=== PATIENT | male | born 1930 | race Caucasian/White ===

== ENCOUNTER 2017-11-16 11:56 | Inpatient (IN) ==
[2017-11-23] MEDS ORDERED: hydrALAZINE HCl Inj 20 MG/ML Vial IV.PUSH PRN (00:01)
[2017-11-23] MEDS ORDERED: Acetaminophen 325 MG Tablet PO PRN (00:01)
[2017-11-23] MEDS ORDERED: Chlorhexidine Gluconate 2% 1 Pack (2 Cloths) TOPICAL PRN (04:00)
[2017-11-23] MEDS: Chlorhexidine Gluconate 2% 1 Pack (2 Cloths) TOPICAL SCH (05:45)
[2017-11-23 07:23] LABS: Hematocrit 36.1 % (39.0-51.0); Hemoglobin 12.2 gm/dL (13.0-17.0); Mean Corpuscular HGB Conc 33.9 % (32.0-36.0); Mean Corpuscular Hemoglobin 30.7 pg (27.0-34.0); Mean Corpuscular Volume 90.8 fL (80.0-100.0); Mean Platelet Volume 7.4 fL (7.0-11.0); Platelet Count 243 th/mm3 (150-450); Red Blood Count 3.97 mil/mm3 (4.50-5.90); Red Cell Distribution Width 13.3 % (11.6-17.2); White Blood Count 10.4 th/mm3 (4.0-11.0)
[2017-11-23 07:46] LABS: Calcium 8.5 mg/dL (8.5-10.1); Carbon Dioxide 28.3 meq/L (21.0-32.0); Potassium 4.3 meq/L (3.5-5.1)
[2017-11-23] MEDS: Ciprofloxacin 500 MG Tablet PO SCH ×2 (10:02→23:06)
[2017-11-23] MEDS: Metoprolol Tartrate 25 MG Tablet PO SCH (10:03)
[2017-11-23] MEDS: Famotidine 20 MG Tablet PO SCH ×2 (10:04→23:06)
[2017-11-23] MEDS: Lisinopril 5 MG Tablet PO SCH (10:05)
--- NOTE | 2017-11-23 12:33 | P.PNIM ---
Subjective Interval history: Patient complains of bilateral lower extremity pain which is present with ambulation. Family has concerns for clot. I feel this may be related to his previous diarrhea with electrolyte disturbances. His diarrhea has improved on Questran. Physical Exam Vital signs: Vital Signs 11/22/17 19:40 11/23/17 00:00 11/23/17 04:00 Temperature 97.9 F 97.6 F Pulse Rate 68 66 80 Respiratory Rate 20 20 Blood Pressure 151/71 H 158/74 H Pulse Oximetry 95 96 11/23/17 08:00 11/23/17 12:26 Temperature 97.3 F L Pulse Rate 58 L 51 L Respiratory Rate 18 Blood Pressure 145/79 H Pulse Oximetry 98 Intake & Output 11/22/17 11/23/17 11/23/17 18:59 06:59 18:59 Weight 69.4 kg Other: Date of Last Bowel Movement 11/23/17 - Routine HEENT Exam Comments: GENERAL: NAD, A&Ox3 HEAD: Normocephalic. NECK: Supple, trachea midline. No lymphadenopathy. EYES: No scleral icterus. No injection or drainage. CARDIOVASCULAR: Regular rate and rhythm without murmurs, gallops, or rubs. RESPIRATORY: Breath sounds equal bilaterally. No accessory muscle use. GASTROINTESTINAL: Abdomen soft, non-tender, nondistended. MUSCULOSKELETAL: No cyanosis, or edema. SKIN: Warm and dry. NEURO: No focal neurological deficitis. Results - Labs CBC & Chem 7: 11/23/17 06:30 11/23/17 06:30 Labs: Laboratory Results - last 24 hr 11/20/17 11/20/17 11/21/17 04:59 04:59 05:21 WBC 10.3 RBC 3.88 L Hgb 12.0 L Hct 34.8 L MCV 89.8 MCH 31.1 MCHC 34.6 RDW 13.5 Plt Count 178 MPV 7.7 Sodium 139 137 Potassium 3.9 4.2 Chloride 104 103 Carbon Dioxide 25.9 27.0 Anion Gap 9 7 BUN 18 18 Creatinine 1.03 0.90 Estimated GFR 68 L 80 L Random Glucose 93 100 Calcium 7.9 L 8.4 L Stl C.difficile Tox PCR St C. diff Tox Epid 027 11/21/17 11/22/17 11/22/17 05:21 04:44 04:44 WBC 11.8 H 11.4 H RBC 4.03 L 3.94 L Hgb 12.1 L 12.1 L Hct 36.4 L 35.5 L MCV 90.2 90.0 MCH 30.0 30.8 MCHC 33.3 34.2 RDW 13.6 13.2 Plt Count 220 234 MPV 7.6 7.5 Sodium 138 Potassium 4.2 Chloride 102 Carbon Dioxide 27.1 Anion Gap 9 BUN 19 H Creatinine 1.11 Estimated GFR 63 L Random Glucose 92 Calcium 8.2 L Stl C.difficile Tox PCR St C. diff Tox Epid 027 11/22/17 11/23/17 11/23/17 17:10 06:30 06:30 WBC 10.4 RBC 3.97 L Hgb 12.2 L Hct 36.1 L MCV 90.8 MCH 30.7 MCHC 33.9 RDW 13.3 Plt Count 243 MPV 7.4 Sodium 138 Potassium 4.3 Chloride 102 Carbon Dioxide 28.3 Anion Gap 8 BUN 13 Creatinine 1.12 Estimated GFR 62 L Random Glucose 94 Calcium 8.5 Stl C.difficile Tox PCR NEGATIVE St C. diff Tox Epid 027 PRESUMPTIVE NEGATIVE Assessment and Plan - Plan 87-year-old male admitted secondary to severe sepsis with UTI and metabolic encephalopathy. Diarrhea C. difficile screen is negative Improving with Questran Questran continue Bilateral lower extremity pain with ambulation Check bilateral lower extremity with ultrasound Potassium supplementation provided Magnesium supplementation provided Urinary tract infection Sensitive to Cipro, continue ciprofloxacin Hypertension Continue baseline treatment Follow blood pressures Adjust treatments as needed Coronary artery disease Status post CABG Cardiomyopathy/CHF New onset atrial fibrillation Treatment per cardiology recommendations Cardiology following Follow on telemetry Continue metoprolol Continue lisinopril Acute kidney injury HTN Benign prostatic hypertrophy Obstructive urinary retention Camacho catheter is in place Continue Flomax Void trial planned in 1-2 days Monitor renal function Avoid nephrotoxins DVT prophylaxis Lovenox SCDs Metabolic encephalopathy resolved Avoid sedatives Septic shock Lactic acidosis Resolved Discharge Planning Testing of diarrhea, void trial, physical therapy, needed prior to discharge daughter Erna Browning; [phone])
[2017-11-23] MEDS ORDERED: Magnesium Oxide 400 MG Tablet PO ONE (14:00)
--- NOTE | 2017-11-23 15:23 | P.PNCA ---
Subjective Interval history: No events overnight Diarrhea has decreased Physical Exam Vital signs: Vital Signs 11/22/17 19:40 11/23/17 00:00 11/23/17 04:00 Temperature 97.9 F 97.6 F Pulse Rate 68 66 80 Respiratory Rate 20 20 Blood Pressure 151/71 H 158/74 H Pulse Oximetry 95 96 11/23/17 08:00 11/23/17 12:00 11/23/17 12:26 Temperature 97.3 F L 97.4 F L Pulse Rate 58 L 68 51 L Respiratory Rate 18 18 Blood Pressure 145/79 H 121/64 Pulse Oximetry 98 96 Intake & Output 11/22/17 11/23/17 11/23/17 18:59 06:59 18:59 Weight 69.4 kg Other: Date of Last Bowel Movement 11/23/17 Narrative: GENERAL: NAD, AAOx3 SKIN: Warm and dry. HEAD: Atraumatic. Normocephalic. EYES: Pupils equal and round. No scleral icterus. No injection or drainage. ENT: No nasal bleeding or discharge. Mucous membranes pink and moist. NECK: Trachea midline. No JVD. CARDIOVASCULAR: Irregularly irregular RESPIRATORY: No accessory muscle use. Clear to auscultation. Breath sounds equal bilaterally. GASTROINTESTINAL: Abdomen soft, non-tender, nondistended. Hepatic and splenic margins not palpable. MUSCULOSKELETAL: Extremities without clubbing, cyanosis, or edema. No obvious deformities. NEUROLOGICAL: Awake and alert. No obvious cranial nerve deficits. Motor grossly within normal limits. Five out of 5 muscle strength in the arms and legs. Normal speech. PSYCHIATRIC: Appropriate mood and affect; insight and judgment normal. Assessment and Plan - Assessment (1) New onset a-fib Code(s): I48.91 - Unspecified atrial fibrillation Status: Acute (2) Sepsis Code(s): A41.9 - Sepsis, unspecified organism Status: Acute (3) UTI (urinary tract infection) Code(s): N39.0 - Urinary tract infection, site not specified Status: Acute - Plan 1) AFib New onset, most likely due to age and increased sympathetics with sepsis/ overall illness Rates controlled CHADSVASc = 3 Discussed consideration of anti-coagulation with him, he really didn't have an opinion either way, asked that I call his Daughter Spoke to his daughter Nam over the phone, discussed risk/benefits of anticoagulation vs ASA She's concerned about everything happening at once and his overall bruising on ASA alone For now she thinks we should continue on ASA, understands the risk of CVA , but she will consider NOAC after he gets out of the hospital and he's jamie at home Can revisit anti-coagulation outpt with Dr. 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 Gill
--- NOTE | 2017-11-23 16:11 | US ---
EXAM DATE: 11/23/2017 3:28 PM EDT AGE/SEX: 87 years / Male INDICATIONS: Bilateral leg pain. CLINICAL DATA: This is the patient's initial encounter. Patient reports that signs and symptoms have been present for 1 day and indicates a pain score of 5/10. MEDICAL/SURGICAL HISTORY: Hypercholesterolemia. Hypertension. Gallbladder disease. CAD. Inguin al hernia. CABG. Inguinal hernia repair. COMPARISON: No prior exams available for comparison. TECHNIQUE: Venous ultrasound of both lower extremities was performed from the inguinal ligament to t he proximal calf. Real-time, color Doppler and spectral tracing, compression and augmentation techni ques were used. FINDINGS: Right Leg: Normal compression of the deep venous system from the inguinal region to the proximal lucia f. No echogenic clot is seen. Normal response of the venous system to augmentation and respiration. Left Leg: Normal compression of the deep venous system from the inguinal region to the proximal calf . No echogenic clot is seen. Normal response of the venous system to augmentation and respiration. Other: None. CONCLUSION: 1. No evidence of deep venous thrombosis within the lower extremities. Electronically signed by: Marquez García MD 11/23/2017 4:10 PM EDT
[2017-11-23] MEDS: Enoxaparin Inj 30 MG/0.3 ML Syringe SQ SCH (17:26)
[2017-11-24 06:53] LABS: Hematocrit 36.4 % (39.0-51.0); Hemoglobin 12.6 gm/dL (13.0-17.0); Mean Corpuscular HGB Conc 34.5 % (32.0-36.0); Mean Corpuscular Volume 89.8 fL (80.0-100.0); Mean Platelet Volume 7.4 fL (7.0-11.0); Platelet Count 246 th/mm3 (150-450); Red Blood Count 4.05 mil/mm3 (4.50-5.90); Red Cell Distribution Width 13.5 % (11.6-17.2); White Blood Count 10.6 th/mm3 (4.0-11.0)
[2017-11-24 07:38] LABS: Calcium 8.8 mg/dL (8.5-10.1); Carbon Dioxide 23.8 meq/L (21.0-32.0); Potassium 4.1 meq/L (3.5-5.1)
[2017-11-24] MEDS: Famotidine 20 MG Tablet PO SCH ×2 (08:52→21:43)
[2017-11-24] MEDS: Lisinopril 5 MG Tablet PO SCH (08:52)
[2017-11-24] MEDS: Ciprofloxacin 500 MG Tablet PO SCH ×2 (08:52→21:43)
[2017-11-24] MEDS: Metoprolol Tartrate 25 MG Tablet PO SCH (08:52)
--- NOTE | 2017-11-24 11:44 | P.PNIM ---
Subjective Interval history: Void trial planned for today. Pending removal of catheter in the monitor volumes. No new complaints from patient. Ultrasound of lower extremities is negative for DVT. Physical Exam Vital signs: Vital Signs 11/23/17 12:00 11/23/17 12:26 11/23/17 16:00 Temperature 97.4 F L 97.8 F Pulse Rate 68 51 L 62 Respiratory Rate 18 18 Blood Pressure 121/64 119/61 Pulse Oximetry 96 98 11/23/17 20:00 11/24/17 00:00 11/24/17 04:00 Temperature 98.0 F 98.3 F 97.1 F L Pulse Rate 66 73 72 Respiratory Rate 18 16 18 Blood Pressure 119/82 148/84 H 148/73 H Pulse Oximetry 97 98 98 11/24/17 08:00 11/24/17 09:50 Temperature 98.4 F Pulse Rate 68 77 Respiratory Rate 18 Blood Pressure 163/96 H Pulse Oximetry 97 Intake & Output 11/23/17 11/24/17 11/24/17 18:59 06:59 18:59 Intake Total 0 / 0 470 / 470 Output Total 1800 / 1800 Balance 0 / 0 -1330 / -1330 Weight 68.9 kg Intake: Oral 470 / 470 Other 0 / 0 Output: Urine 1800 / 1800 Other: Date of Last Bowel Movement 11/23/17 # Bowel Movements 3 - Routine HEENT Exam Comments: GENERAL: NAD, A&Ox3 HEAD: Normocephalic. NECK: Supple, trachea midline. No lymphadenopathy. EYES: No scleral icterus. No injection or drainage. CARDIOVASCULAR: Regular rate and rhythm without murmurs, gallops, or rubs. RESPIRATORY: Breath sounds equal bilaterally. No accessory muscle use. GASTROINTESTINAL: Abdomen soft, non-tender, nondistended. MUSCULOSKELETAL: No cyanosis, or edema. SKIN: Warm and dry. NEURO: No focal neurological deficitis. - Urinary Catheter Management Indwelling Urethral Catheter Cath placed during this visit: yes Urethral indwelling: Yes Reason for continuing: Not indwelling catheter (Void Trial today) Insertion date: 11/23/17 Insertion time: 00:00 Results - Labs CBC & Chem 7: 11/24/17 04:50 11/24/17 04:50 Laboratory Results - last 24 hr 11/24/17 11/24/17 04:50 04:50 WBC 10.6 RBC 4.05 L Hgb 12.6 L Hct 36.4 L MCV 89.8 MCH 31.0 MCHC 34.5 RDW 13.5 Plt Count 246 MPV 7.4 Sodium 135 L Potassium 4.1 Chloride 101 Carbon Dioxide 23.8 Anion Gap 10 BUN 15 Creatinine 1.08 Estimated GFR 65 L Random Glucose 89 Calcium 8.8 - Imaging Impressions Venous Doppler Study 11/23/17 00:00 CONCLUSION: 1. No evidence of deep venous thrombosis within the lower extremities. Assessment and Plan - Plan 87-year-old male admitted secondary to severe sepsis with UTI and metabolic encephalopathy. Void trial today. Monitor urine output. Monitor bladder volumes. If patient fails voiding trial will discharge with catheter. The patient passes void trial will leave catheter out. Diarrhea C. difficile screen is negative Improving with Questran Questran continue Bilateral lower extremity pain with ambulation Check bilateral lower extremity with ultrasound Potassium supplementation provided Magnesium supplementation provided Urinary tract infection Sensitive to Cipro, continue ciprofloxacin Hypertension Continue baseline treatment Follow blood pressures Adjust treatments as needed Coronary artery disease Status post CABG Cardiomyopathy/CHF New onset atrial fibrillation Treatment per cardiology recommendations Cardiology following Follow on telemetry Continue metoprolol Continue lisinopril Acute kidney injury HTN Benign prostatic hypertrophy Obstructive urinary retention Camacho catheter is in place Continue Flomax Void trial planned in 1-2 days Monitor renal function Avoid nephrotoxins DVT prophylaxis Lovenox SCDs Metabolic encephalopathy resolved Avoid sedatives Septic shock Lactic acidosis Resolved Discharge Planning Testing of diarrhea, void trial, physical therapy, needed prior to discharge daughter Erna Browning; [phone])
--- NOTE | 2017-11-24 14:16 | P.DCO ---
- Physical Therapy Order: Evaluate and treat - Occupational Therapy Order: Evaluate and treat - Home Health Nursing Order: Medical education, Nursing assessment with vital signs - Certification I have seen patient Johan Amin on 11/24/17. My clinical findings support the need for the requested home health care services because: Limited mobility due to disease progression, Deconditioned with increased weakness, Limited ability to care for self, High risk of falls I certify that my clinical findings support that this patient is homebound because: Unsteady gait/balance, Unsafe to leave home unassisted, Unable to use public transportation
[2017-11-24] MEDS: Enoxaparin Inj 30 MG/0.3 ML Syringe SQ SCH (16:36)
[2017-11-24] MEDS: Chlorhexidine Gluconate 2% 1 Pack (2 Cloths) TOPICAL SCH (20:28)
[2017-11-25] MEDS: Chlorhexidine Gluconate 2% 1 Pack (2 Cloths) TOPICAL SCH (05:54)
[2017-11-25] MEDS: Ciprofloxacin 500 MG Tablet PO SCH ×2 (09:11→21:10)
[2017-11-25] MEDS: Famotidine 20 MG Tablet PO SCH ×2 (09:11→21:10)
[2017-11-25] MEDS: Lisinopril 5 MG Tablet PO SCH (09:11)
[2017-11-25] MEDS: Metoprolol Tartrate 25 MG Tablet PO SCH (09:11)
[2017-11-25 10:01] LABS: Calcium 8.6 mg/dL (8.5-10.1); Carbon Dioxide 25.4 meq/L (21.0-32.0); Potassium 4.5 meq/L (3.5-5.1)
[2017-11-25 10:44] LABS: Hematocrit 38.8 % (39.0-51.0); Hemoglobin 13.2 gm/dL (13.0-17.0); Mean Corpuscular Hemoglobin 30.4 pg (27.0-34.0); Mean Corpuscular Volume 89.4 fL (80.0-100.0); Mean Platelet Volume 7.4 fL (7.0-11.0); Platelet Count 309 th/mm3 (150-450); Red Blood Count 4.35 mil/mm3 (4.50-5.90); Red Cell Distribution Width 13.4 % (11.6-17.2); White Blood Count 16.3 th/mm3 (4.0-11.0)
--- NOTE | 2017-11-25 11:36 | P.DS ---
Date of admission: 11/16/17 15:21 Primary care physician: Dmitriy Gutierrez Brief History from admission: Patient is a 87-year-old male with past medical history significant for hypertension, dyslipidemia, coronary artery disease CABG 37 years ago who presented to the emergency department with fever and abdominal pain generalized. Patient had a recent right inguinal hernia repair but the site looked okay clinically. ER workup showed white count of 10.9 with 31% bands. BUN was 41 creatinine was 3.64 patient does not have any history of renal failure in the past. Lactic acid was 2.6 UA was positive for UTI. Patient received a dose of vancomycin and Zosyn in the ED. Despite 2 L fluid boluses patient remained hypotensive and critical care was consulted for admission. Initial temperature in the ED was 101.3 DS: Diagnosis - Discharge Diagnosis (1) New onset a-fib Status: Acute (2) Sepsis Status: Acute (3) UTI (urinary tract infection) Status: Acute (4) Weakness Status: Acute DS: Summary Hospital Course: 87-year-old male admitted secondary to severe sepsis with UTI and metabolic encephalopathy. Void trial today. Monitor urine output. Monitor bladder volumes. If patient fails voiding trial will discharge with catheter. The patient passes void trial will leave catheter out. Diarrhea C. difficile screen is negative Improving with Questran Questran continue Bilateral lower extremity pain with ambulation Check bilateral lower extremity with ultrasound Potassium supplementation provided Magnesium supplementation provided Urinary tract infection Sensitive to Cipro, continue ciprofloxacin Hypertension Continue baseline treatment Follow blood pressures Adjust treatments as needed Coronary artery disease Status post CABG Cardiomyopathy/CHF New onset atrial fibrillation Treatment per cardiology recommendations Cardiology following Follow on telemetry Continue metoprolol Continue lisinopril Acute kidney injury HTN Benign prostatic hypertrophy Obstructive urinary retention Camacho catheter is in place Continue Flomax Void trial planned in 1-2 days Monitor renal function Avoid nephrotoxins DVT prophylaxis Lovenox SCDs Metabolic encephalopathy resolved Avoid sedatives Septic shock Lactic acidosis Resolved - Time Spent with Patient Total time spent providing and/or coordinating discharge services: Greater than 30 minutes Exam Vital signs: Vital Signs 11/24/17 12:00 11/24/17 16:00 11/24/17 16:58 Temperature 97.8 F 98.0 F Pulse Rate 59 L 62 82 Respiratory Rate 18 18 Blood Pressure 128/70 130/72 Pulse Oximetry 99 98 11/24/17 20:00 11/24/17 23:55 11/25/17 04:00 Temperature 98 F 98.5 F 97.3 F L Pulse Rate 66 93 H 101 H Respiratory Rate 16 16 16 Blood Pressure 145/65 H 158/89 H 173/93 H Pulse Oximetry 96 97 95 11/25/17 08:00 11/25/17 08:03 Temperature 98.2 F Pulse Rate 82 73 Respiratory Rate 16 Blood Pressure 149/74 H Pulse Oximetry 98 Intake & Output 11/24/17 11/25/17 11/25/17 18:59 06:59 18:59 Intake Total 200 / 200 Balance 200 / 200 Weight 68.3 kg Intake: Oral 200 / 200 Other: Date of Last Bowel Movement 11/25/17 # Bowel Movements 1 - Constitutional no acute distress - Routine HEENT Exam Head: Present: normocephalic Eye: Present: EOMI, PERRL - Routine Neck Exam Present: supple - Routine Abdominal Exam Present: soft - Routine Skin Exam Present: intact Results Procedures completed during hospitalization: See dc summary. Labs on day of discharge: Labs from last 24 hours 11/25/17 11/25/17 08:11 08:11 WBC 16.3 H RBC 4.35 L Hgb 13.2 Hct 38.8 L MCV 89.4 MCH 30.4 MCHC 34.0 RDW 13.4 Plt Count 309 MPV 7.4 Sodium 132 L Potassium 4.5 Chloride 98 Carbon Dioxide 25.4 Anion Gap 9 BUN 21 H Creatinine 1.24 Estimated GFR 55 L Random Glucose 113 H Calcium 8.6 - Impressions ITS Impressions Venous Doppler Study 11/23/17 00:00 CONCLUSION: 1. No evidence of deep venous thrombosis within the lower extremities. Discharge Plan - Discharge Disposition Patient Disposition: W/Home Health Service - Discharge Condition Condition: Stable - Physicians Team Primary Care Provider: Dmitriy Gutierrez Attending Provider: Francesca Morales Other Providers: Jose Holt MD ; Krystian Wan, - Rxs /Orders / Referrals /Forms Prescriptions: New cholestyramine (with sugar) 4 gram Powder In Packet 4 gm PO Q12HR 15 Days Qty: 30 RF: 0 ciprofloxacin HCl 500 mg Tablet 500 mg PO Q12HR 10 Days Qty: 20 RF: 0 lisinopril 5 mg Tablet 5 mg PO DAILY 30 Days Qty: 30 RF: 0 Continue lovastatin 20 mg Tablet 20 mg PO HS metoprolol tartrate 25 mg Tablet 25 mg PO HS terazosin 10 mg Capsule 10 mg PO HS Discontinued lisinopril 10 mg Tablet 10 mg PO HS Referrals: Dmitriy Gutierrez MD [Primary Care Provider] - 12/01/17
--- NOTE | 2017-11-25 12:36 | P.PN ---
Subjective Interval history: Follow up diarrhea and UTI. Patient seen and examined, family at bedside. Patient is sleeping, awakens to voice. States he feels more tired today. WBC increased today. No fever. Patient has not been eating or drinking very much. Also is having urinary retention, bladder scanner >700ml. Order to place a FC. Urology consulted. Mildly elevated BP, possible 2/2 bladder distention/ retention. Physical Exam Vital signs: Vital Signs 11/24/17 16:00 11/24/17 16:58 11/24/17 20:00 Temperature 98.0 F 98 F Pulse Rate 62 82 66 Respiratory Rate 18 16 Blood Pressure 130/72 145/65 H Pulse Oximetry 98 96 11/24/17 23:55 11/25/17 04:00 11/25/17 08:00 Temperature 98.5 F 97.3 F L 98.2 F Pulse Rate 93 H 101 H 82 Respiratory Rate 16 16 16 Blood Pressure 158/89 H 173/93 H 149/74 H Pulse Oximetry 97 95 98 11/25/17 08:03 Temperature Pulse Rate 73 Respiratory Rate Blood Pressure Pulse Oximetry Intake & Output 11/24/17 11/25/17 11/25/17 18:59 06:59 18:59 Intake Total 200 / 200 Balance 200 / 200 Weight 68.3 kg Intake: Oral 200 / 200 Other: Date of Last Bowel Movement 11/25/17 # Bowel Movements 1 - Constitutional no acute distress - Routine HEENT Exam Head: Present: normocephalic Eye: Present: EOMI, PERRL ENT: Present: mucous membranes moist - Routine Neck Exam Present: supple - Routine Abdominal Exam Present: soft - Routine Skin Exam Present: intact - Routine Neurological Exam Present: alert, normal reflexes - Detailed Neurological Exam: Coma Scale Eye Opening: Spontaneous - Routine Psychiatric Exam Present: normal affect - Urinary Catheter Management Indwelling Urethral Catheter Cath placed during this visit: yes Urethral indwelling: Yes Reason for continuing: Acute urinary retention Insertion date: 11/25/17 Insertion time: 00:00 Results - Labs CBC & Chem 7: 11/25/17 08:11 11/25/17 08:11 Laboratory Results - last 24 hr 11/25/17 11/25/17 08:11 08:11 WBC 16.3 H RBC 4.35 L Hgb 13.2 Hct 38.8 L MCV 89.4 MCH 30.4 MCHC 34.0 RDW 13.4 Plt Count 309 MPV 7.4 Sodium 132 L Potassium 4.5 Chloride 98 Carbon Dioxide 25.4 Anion Gap 9 BUN 21 H Creatinine 1.24 Estimated GFR 55 L Random Glucose 113 H Calcium 8.6 - Procedures See dc summary. Assessment and Plan - Assessment (1) New onset a-fib Code(s): I48.91 - Unspecified atrial fibrillation Status: Acute (2) Sepsis Code(s): A41.9 - Sepsis, unspecified organism Status: Acute (3) UTI (urinary tract infection) Code(s): N39.0 - Urinary tract infection, site not specified Status: Acute (4) Weakness Code(s): R53.1 - Weakness Status: Acute - Plan 87-year-old male admitted secondary to severe sepsis with UTI and metabolic encephalopathy. Failed void trial today, residule >700 ml. FC ordered to be placed. Urology consulted. Patient with decreased PO intake, more fatigued and weak, WBC elevated today. Diarrhea C. difficile screen is negative. Improving with Questran. Questran continue. Bilateral lower extremity pain with ambulation Check bilateral lower extremity with ultrasound. Negative. Potassium supplementation provided. Stable. Magnesium supplementation provided. Stable. Urinary tract infection Sensitive to Cipro, continue ciprofloxacin. Will recheck UA. Leukocytosis today. Hypertension Continue baseline treatment Follow blood pressures Adjust treatments as needed Coronary artery disease Status post CABG Cardiomyopathy/CHF New onset atrial fibrillation Treatment per cardiology recommendations Cardiology following Follow on telemetry Continue metoprolol Continue lisinopril Acute kidney injury HTN Benign prostatic hypertrophy Obstructive urinary retention Camacho catheter is in place Continue Flomax. Added Finasteride. Failed void trial today. Monitor renal function. Avoid nephrotoxins DVT prophylaxis Lovenox SCDs Discharge Planning: Awaiting clinical improvement.
--- NOTE | 2017-11-25 14:03 | XR ---
EXAM DATE: 11/25/2017 1:29 PM EDT AGE/SEX: 87 years / Male INDICATIONS: Shortness of breath. CLINICAL DATA: This is the patient's subsequent encounter. Patient reports that signs and symptoms h ave been present for 1 day and indicates a pain score of Nonresponsive. MEDICAL/SURGICAL HISTORY: . Hypercholesterolemia. Hypertension. Gallbladder disease. A-fib. . CAD. Inguinal hernia. CABG. Inguinal hernia repair COMPARISON: [facility] – [place], CHEST SINGLE AP, 11/16/2017. . FINDINGS: A single AP view of the chest demonstrates the lungs to be symmetrically aerated without evidence of mass, infiltrate or effusion. Status post CABG. Mild cardiomegaly. The cardiomediastinal contours ar e unremarkable. Osseous structures are intact. CONCLUSION: No acute cardiopulmonary disease Electronically signed by: Didier Carlson MD 11/25/2017 2:01 PM EDT
--- NOTE | 2017-11-25 14:55 | P.CONURO ---
History of Present Illness Service: Urology Consult date: 11/25/17 Requesting Physician: Echo Finney Reason for Consult: Urinary retention Primary Care Provider: Dmitriy Gutierrez Chief Complaint: Unable to void History of Present Illness: Pt is 87-year-old male admitted secondary to severe sepsis with UTI and metabolic encephalopathy, A fib. Pt is s/p Hernia repair in October and since that time has urinary retention. He failed several voiding trials, last one today and bladder scan showed 700cc in the bladder and he could not void on his own. Calderon cath was placed, He is on alpha blockers at home, here takes flomax bid and proscar. Urology consulted Review of Systems All other systems reviewed negative except as stated in HPI Medications and Allergies Active Medications: Active Medications Acetaminophen (Tylenol) 650 mg PO Q6H PRN PRN Reason: PAIN 1-10 AND/OR FEVER >101F Albuterol (Duoneb Neb (Prn)) 1 ampul INH Q2HR NEB PRN PRN Reason: WHEEZING Chlorhexidine Gluconate (Chlorhexidine 2% Cloth) 3 pack TOPICAL DAILY@0400 [facility] Stop: 11/28/17 03:59 Last Admin: 11/25/17 05:54 Dose: Not Given Chlorhexidine Gluconate (Chlorhexidine 2% Cloth) 3 pack TOPICAL DAILY@0400 PRN PRN Reason: Extra cloth needed Stop: 11/28/17 03:59 Cholestyramine Resin (Questran 4 Gm Pkt) 4 gm PO Q12HR [facility] Last Admin: 11/25/17 09:11 Dose: 4 gm Ciprofloxacin HCl (Cipro) 500 mg PO Q12HR [facility] Last Admin: 11/25/17 09:11 Dose: 500 mg Enoxaparin Sodium (Lovenox Inj) 30 mg SQ Q24H [facility] Last Admin: 11/24/17 16:36 Dose: 30 mg Famotidine (Pepcid) 20 mg PO BID [facility] Last Admin: 11/25/17 09:11 Dose: 20 mg Finasteride (Proscar) 5 mg PO DAILY [facility] Hydralazine HCl (Apresoline Inj) 10 mg IV.PUSH Q6H PRN PRN Reason: SYS BP GREATER THAN 160 MMHG Sodium Chloride (Ns Inj) 1,000 mls @ 42 mls/hr IV.CONT .[id number] [facility] Lisinopril (Prinivil) 5 mg PO DAILY [facility] Last Admin: 11/25/17 09:11 Dose: 5 mg Metoprolol Tartrate (Lopressor) 25 mg PO DAILY [facility] Last Admin: 11/25/17 09:11 Dose: 25 mg Pravastatin Sodium (Pravachol) 20 mg PO [facility] Last Admin: 11/24/17 21:43 Dose: 20 mg Sodium Chloride (Ns Flush) 2 ml IV.FLUSH UNSCH PRN PRN Reason: FLUSH AFTER USING IV ACCESS Sodium Chloride (Ns Flush) 2 ml IV.FLUSH BID [facility] Last Admin: 11/25/17 09:11 Dose: 2 ml Tamsulosin HCl (Flomax) 0.4 mg PO DAILY [facility] Last Admin: 11/25/17 09:11 Dose: 0.4 mg Allergies Allergy/AdvReac Type Severity Reaction Status Date / Time iodine Allergy Unknown RASHES Verified 11/16/17 12:52 Home Medications Medication Instructions Recorded Confirmed Type lisinopril 10 mg PO 11/22/17 11/22/17 History lovastatin 20 mg PO 11/22/17 11/22/17 History metoprolol tartrate 25 mg PO 11/22/17 11/22/17 History terazosin 10 mg PO 11/22/17 11/22/17 History Physical Exam Vital Signs - 24 hr 11/24/17 16:00 11/24/17 16:58 11/24/17 20:00 Temperature 98.0 F 98 F Pulse Rate 62 82 66 Respiratory Rate 18 16 Blood Pressure 130/72 145/65 H Pulse Oximetry 98 96 11/24/17 23:55 11/25/17 04:00 11/25/17 08:00 Temperature 98.5 F 97.3 F L 98.2 F Pulse Rate 93 H 101 H 82 Respiratory Rate 16 16 16 Blood Pressure 158/89 H 173/93 H 149/74 H Pulse Oximetry 97 95 98 11/25/17 08:03 11/25/17 11:45 11/25/17 12:00 Temperature 97.8 F Pulse Rate 73 52 L 64 Respiratory Rate 16 Blood Pressure 101/59 L Pulse Oximetry 96 Physical Exam: GENERAL: This is a well-nourished, well-developed patient, in no apparent distress. SKIN: No rashes, ecchymoses or lesions. Cool and dry. HEAD: Atraumatic. Normocephalic. No temporal or scalp tenderness. CARDIOVASCULAR: Regular rate and rhythm without murmurs RESPIRATORY: Clear to auscultation. Breath sounds equal bilaterally. No wheezes , rales, or rhonchi. GASTROINTESTINAL: Abdomen soft, non-tender, nondistended. GENITOURINARY: Calderon is in place, urine is clear yellow MUSCULOSKELETAL: Extremities without clubbing, cyanosis, or edema. NEUROLOGICAL: Awake and alert. Laboratory Results - last 24 hr 11/25/17 11/25/17 08:11 08:11 WBC 16.3 H RBC 4.35 L Hgb 13.2 Hct 38.8 L MCV 89.4 MCH 30.4 MCHC 34.0 RDW 13.4 Plt Count 309 MPV 7.4 Sodium 132 L Potassium 4.5 Chloride 98 Carbon Dioxide 25.4 Anion Gap 9 BUN 21 H Creatinine 1.24 Estimated GFR 55 L Random Glucose 113 H Calcium 8.6 Result Diagrams: 11/25/17 08:11 11/25/17 08:11 Imaging: ITS Impressions Venous Doppler Study 11/23/17 00:00 CONCLUSION: 1. No evidence of deep venous thrombosis within the lower extremities. Chest X-Ray 11/25/17 00:00 CONCLUSION: No acute cardiopulmonary disease Assessment and Plan - Assessment (1) Urinary (tract) obstruction Code(s): N13.9 - Obstructive and reflux uropathy, unspecified Status: Acute (2) Urinary retention Code(s): R33.9 - Retention of urine, unspecified Status: Acute - Plan 87y.o M with other medical issues Urology consulted for Retention of urine. He is with calderon catheter and on flomax was treated for UTI/sepsis VS are stable, still has elevated white count - Continue care as per primary team. Continue antbx - Keep calderon catheter in and continue flomax bid and Proscar qd - When stable, can be d/c with calderon catheter and see Urologist as an outpt within a week after d/c for calderon cath removal and voiding trial Call [phone] after d/c to make an appt Discussed Condition With: Dr Kennedi LUCAS attending who agrees with this plan
[2017-11-25 15:49] LABS: Hematocrit 34.8 % (39.0-51.0); Hemoglobin 11.9 gm/dL (13.0-17.0); Mean Corpuscular HGB Conc 34.1 % (32.0-36.0); Mean Corpuscular Hemoglobin 30.8 pg (27.0-34.0); Mean Corpuscular Volume 90.4 fL (80.0-100.0); Mean Platelet Volume 7.4 fL (7.0-11.0); Platelet Count 291 th/mm3 (150-450); Red Blood Count 3.85 mil/mm3 (4.50-5.90); Red Cell Distribution Width 13.4 % (11.6-17.2); White Blood Count 10.9 th/mm3 (4.0-11.0)
[2017-11-25] MEDS: Finasteride 5 MG Tablet PO SCH (16:01)
[2017-11-25] MEDS: Sod Chloride 0.9% Inj 1,000 ML IV.CONT SCH (16:02)
[2017-11-25] MEDS: Enoxaparin Inj 30 MG/0.3 ML Syringe SQ SCH (16:09)
[2017-11-26 05:05] LABS: Hematocrit 35.4 % (39.0-51.0); Hemoglobin 12.1 gm/dL (13.0-17.0); Mean Corpuscular HGB Conc 34.2 % (32.0-36.0); Mean Corpuscular Hemoglobin 30.5 pg (27.0-34.0); Mean Corpuscular Volume 89.2 fL (80.0-100.0); Mean Platelet Volume 7.1 fL (7.0-11.0); Platelet Count 279 th/mm3 (150-450); Red Blood Count 3.96 mil/mm3 (4.50-5.90); Red Cell Distribution Width 13.4 % (11.6-17.2); White Blood Count 9.5 th/mm3 (4.0-11.0)
[2017-11-26] MEDS: Chlorhexidine Gluconate 2% 1 Pack (2 Cloths) TOPICAL SCH (05:22)
[2017-11-26 05:30] LABS: Calcium 8.2 mg/dL (8.5-10.1); Potassium 3.9 meq/L (3.5-5.1)
[2017-11-26 05:41] LABS: Bilirubin,Urine Negative (Negative); Clarity,Urine Clear (Clear); Color,Urine Yellow (Yellw/Straw); Glucose,Urine (UA) Negative (Negative); Hyaline Casts,Urine 1 /lpf (0-3); Leukocyte Esterase,Urine Negative (Negative); Mucus,Urine Moderate /lpf (Occasional); Nitrite,Urine Negative (Negative); Specific Gravity,Urine 1.013 (1.002-1.035)
[2017-11-26] MEDS: Ciprofloxacin 500 MG Tablet PO SCH ×2 (09:46→21:57)
[2017-11-26] MEDS: Finasteride 5 MG Tablet PO SCH (09:46)
[2017-11-26] MEDS: Lisinopril 5 MG Tablet PO SCH (09:46)
[2017-11-26] MEDS: Metoprolol Tartrate 25 MG Tablet PO SCH (09:46)
[2017-11-26] MEDS: Famotidine 20 MG Tablet PO SCH ×2 (09:46→21:57)
--- NOTE | 2017-11-26 12:07 | P.PN ---
Subjective Interval history: Mr. Prado was afebrile with stable vital signs overnight (SBP ~150's). Patient accompanied by his and daughter this evening. Patient's daughter reports cough and that his urine has been increasingly cloudy. Patient denies cough or other complaints at this time; he states that he is very weak and that he can ambulate only minimally. Patient does not report chest pain, shortness of breath, or abdominal pain. Physical Exam Vital signs: Vital Signs 11/25/17 16:00 11/25/17 20:00 11/26/17 00:00 Temperature 97.9 F 98.7 F Pulse Rate 61 64 61 Respiratory Rate 16 18 Blood Pressure 114/58 L 135/60 Pulse Oximetry 99 95 11/26/17 01:27 11/26/17 03:54 11/26/17 05:29 Temperature 98 F 98.0 F Pulse Rate 66 67 71 Respiratory Rate 18 Blood Pressure 151/70 H 159/68 H Pulse Oximetry 95 95 11/26/17 08:00 Temperature Pulse Rate 95 H Respiratory Rate Blood Pressure Pulse Oximetry Intake & Output 11/25/17 11/26/17 11/26/17 18:59 06:59 18:59 Intake Total 360 / 360 Output Total 1200 / 1200 1725 / 1725 Balance -840 / -840 -1725 / -1725 Weight 67.6 kg Intake: Oral 360 / 360 Output: Urine 400 / 400 Urine Amount (Catheter) 800 / 800 1725 / 1725 Indwelling Urethral Catheter 800 / 800 1725 / 1725 Other: # Bowel Movements 1 Narrative: Gen: NAD, resting in bed Skin: No visible lesions CV: regular rate and rhythm; normal perfusion Resp: CTAB; normal rate Abd: Soft, nontender to palpation. Normal BM : cath in place; dark urine in Camacho bag MSK: Grossly normal motor function and ROM Neuro: Awake, alert. Normal CN. Grossly normal motor/sensory function - Urinary Catheter Management Indwelling Urethral Catheter Cath placed during this visit: yes, but has since been removed by the nurse Urethral indwelling: Yes Reason for continuing: Acute urinary retention Insertion date: 11/25/17 Insertion time: 14:45 Removal date: 11/24/17 Removal time: 11:36 Results - Labs CBC & Chem 7: 11/26/17 04:39 11/26/17 04:39 Laboratory Results - last 24 hr 11/25/17 11/25/17 11/26/17 15:00 15:10 04:39 WBC 10.9 9.5 RBC 3.85 L 3.96 L Hgb 11.9 L 12.1 L Hct 34.8 L 35.4 L MCV 90.4 89.2 MCH 30.8 30.5 MCHC 34.1 34.2 RDW 13.4 13.4 Plt Count 291 279 MPV 7.4 7.1 Sodium Potassium Chloride Carbon Dioxide Anion Gap BUN Creatinine Estimated GFR Random Glucose Calcium Urine Color Yellow Urine Clarity Clear Urine pH 6.0 Ur Specific [place] 1.013 Urine Protein Negative Urine Glucose (UA) Negative Urine Ketones Negative Urine Occult Blood Small H Urine Nitrate Negative Urine Bilirubin Negative Urine Urobilinogen Less than 2 Ur Leukocyte Esterase Negative Urine RBC 3 Urine WBC 2 Hyaline Casts 1 Urine Mucus Moderate H Micro UA Comment Cath-culture not ind Urine Culture Comments Cath-cult not ind 11/26/17 04:39 WBC RBC Hgb Hct MCV MCH MCHC RDW Plt Count MPV Sodium 136 Potassium 3.9 Chloride 102 Carbon Dioxide 25.0 Anion Gap 9 BUN 17 Creatinine 1.08 Estimated GFR 65 L Random Glucose 89 Calcium 8.2 L Urine Color Urine Clarity Urine pH Ur Specific [place] Urine Protein Urine Glucose (UA) Urine Ketones Urine Occult Blood Urine Nitrate Urine Bilirubin Urine Urobilinogen Ur Leukocyte Esterase Urine RBC Urine WBC Hyaline Casts Urine Mucus Micro UA Comment Urine Culture Comments - Imaging Impressions Chest X-Ray 11/25/17 00:00 CONCLUSION: No acute cardiopulmonary disease - Procedures See dc summary. Assessment and Plan - Assessment (1) New onset a-fib Code(s): I48.91 - Unspecified atrial fibrillation Status: Acute (2) Sepsis Code(s): A41.9 - Sepsis, unspecified organism Status: Acute (3) UTI (urinary tract infection) Code(s): N39.0 - Urinary tract infection, site not specified Status: Acute (4) Weakness Code(s): R53.1 - Weakness Status: Acute - Plan 87-year-old male admitted secondary to severe sepsis with UTI and metabolic encephalopathy. Urinary tract infection Impression: Sepsis on admission w/ blood and urine cultures + 11/16 for Providencia Rettgeri. Sensitive to Cipro Leukocytosis 11/25- UA rechecked and was negative - continue ciprofloxacin. -Will repeat due to concern for urinary changes today per daughter Obstructive urinary retention Benign prostatic hypertrophy Impression: 11/25 Patient failed voiding trial w/ high residual. Camacho placed. -Urology consulted -Keep catheter in place for 1 week; f/u with urology for removal/voiding trial -Continue Flomax and Proscar daily Diarrhea C. difficile screen is negative. Improving with Questran. -Continue Questran Bilateral lower extremity pain with ambulation Impression: US of bilateral lower extremities negative. Suspect weakness/ debility. Normal electrolytes currently -Continue PT Hypertension Acute kidney injury Impression: Intermittent HTN to 150's today Continue baseline treatment Follow blood pressures Adjust treatments as needed Monitor renal function. Avoid nephrotoxins Coronary artery disease Status post CABG Cardiomyopathy/CHF New onset atrial fibrillation Treatment per cardiology recommendations Cardiology following Follow on telemetry Continue metoprolol Continue lisinopril DVT prophylaxis Lovenox SCDs Discharge Planning: Anticipate discharge home with home health tomorrow
[2017-11-26] MEDS: Enoxaparin Inj 30 MG/0.3 ML Syringe SQ SCH (18:12)
[2017-11-26] MEDS: Sod Chloride 0.9% Inj 1,000 ML IV.CONT SCH (18:13)
[2017-11-26 22:23] LABS: Bacteria,Urine Rare /hpf; Bilirubin,Urine Negative (Negative); Clarity,Urine Clear (Clear); Color,Urine Straw (Yellw/Straw); Glucose,Urine (UA) Negative (Negative); Leukocyte Esterase,Urine Trace (Negative); Nitrite,Urine Negative (Negative); Specific Gravity,Urine 1.008 (1.002-1.035)
[2017-11-27] MEDS: Chlorhexidine Gluconate 2% 1 Pack (2 Cloths) TOPICAL SCH (05:34)
[2017-11-27 06:00] LABS: Baso # (Auto) 0.1 th/mm3 (0.0-0.2); Baso % (Auto) 0.8 % (0.0-2.0); Eos # (Auto) 0.2 th/mm3 (0.0-0.4); Hematocrit 36.1 % (39.0-51.0); Hemoglobin 12.2 gm/dL (13.0-17.0); Lymph # (Auto) 1.6 th/mm3 (1.0-4.8); Lymph % (Auto) 19.3 % (9.0-44.0); Mean Corpuscular HGB Conc 33.8 % (32.0-36.0); Mean Corpuscular Hemoglobin 30.9 pg (27.0-34.0); Mean Corpuscular Volume 91.2 fL (80.0-100.0); Mean Platelet Volume 7.2 fL (7.0-11.0); Mono # (Auto) 1.1 th/mm3 (0.0-0.9); Mono % (Auto) 13.1 % (0.0-8.0); Neut # (Auto) 5.3 th/mm3 (1.8-7.7); Neut % (Auto) 64.8 % (16.0-70.0); Platelet Count 290 th/mm3 (150-450); Red Blood Count 3.96 mil/mm3 (4.50-5.90); Red Cell Distribution Width 13.6 % (11.6-17.2); White Blood Count 8.2 th/mm3 (4.0-11.0)
[2017-11-27 06:23] LABS: Carbon Dioxide 24.5 meq/L (21.0-32.0)
[2017-11-27] MEDS: Metoprolol Tartrate 25 MG Tablet PO SCH (09:09)
[2017-11-27] MEDS: Ciprofloxacin 500 MG Tablet PO SCH ×2 (09:09→21:31)
[2017-11-27] MEDS: Lisinopril 10 MG Tablet PO SCH (09:09)
[2017-11-27] MEDS: Famotidine 20 MG Tablet PO SCH ×2 (09:10→21:31)
[2017-11-27] MEDS: Finasteride 5 MG Tablet PO SCH (09:10)
--- NOTE | 2017-11-27 13:55 | P.DS ---
Date of admission: 11/16/17 15:21 Primary care physician: Dmitriy Gutierrez Brief History from admission: Per HPI by Dr. Paniagua: Patient is a 87-year-old male with past medical history significant for hypertension, dyslipidemia, coronary artery disease CABG 37 years ago who presented to the emergency department with fever and abdominal pain generalized. Patient had a recent right inguinal hernia repair but the site looked okay clinically. ER workup showed white count of 10.9 with 31% bands. BUN was 41 creatinine was 3.64 patient does not have any history of renal failure in the past. Lactic acid was 2.6 UA was positive for UTI. Patient received a dose of vancomycin and Zosyn in the ED. Despite 2 L fluid boluses patient remained hypotensive and critical care was consulted for admission. Initial temperature in the ED was 101.3 I evaluated the patient in the emergency department. Patient is lethargic slightly confused but able to answer questions. Currently receiving third liter normal saline. His systolic blood pressure remains in mid 80s. Patient is normally hypotensive and is on metoprolol and lisinopril at home. I have ordered additional 1 more liter fluid total 4 L. Start Levophed to keep map above 65, patient may need central line. We will continue Zosyn DS: Diagnosis - Discharge Diagnosis (1) New onset a-fib Status: Acute (2) Sepsis Status: Acute (3) UTI (urinary tract infection) Status: Acute (4) Weakness Status: Acute DS: Medications - Discharge Medications Prescriptions: ciprofloxacin HCl 500 mg PO Q12HR 10 Days #20 tab finasteride 5 mg PO DAILY #30 tab lisinopril 10 mg PO DAILY #30 tab DS: Summary Hospital Course: Mr. Amin is an 87-year-old male admitted 11/16 secondary to severe sepsis with UTI and metabolic encephalopathy. Patient was found to be septic on admission and was initially treated in ICU. Patient initially treated with Piperacillin/ Tazobactam; blood and urine cultures + for Providencia Rettgeri (Sensitive to Cipro). Patient found to have new onset atrial fibrillation during hospitalization; Cardiology was consulted. Patient was rate controlled with Metoprolol. Echocardiogram was performed showing EF 35-40%. After discussion of benefits/risks of anticoagulation at home, patient and his family elected to use aspirin and forgo further anticoagulation despite Patient was treated with broad s On 11/25, patient failed a voiding trial so a Camacho catheter was placed. Patient has follow-up plans to have removal with Urology. Follow-up urinalysis reassuring. Patient will be discharged home on Ciprofloxacin. Patient reports doing well today. Discussed again with patient and his family regarding possibility of rehabilitation; patient and his family are agreeable to rehab at this time. - Time Spent with Patient Total time spent providing and/or coordinating discharge services: Exam Vital signs: Vital Signs 11/26/17 16:00 11/26/17 19:50 11/26/17 20:00 Temperature 97.7 F 97.1 F L Pulse Rate 67 54 L 66 Respiratory Rate 20 16 Blood Pressure 113/82 134/60 Pulse Oximetry 94 L 96 11/26/17 23:55 11/27/17 00:00 11/27/17 03:50 Temperature 97.7 F Pulse Rate 57 L 69 68 Respiratory Rate 16 Blood Pressure 144/63 H Pulse Oximetry 96 11/27/17 04:00 11/27/17 08:00 Temperature 98.1 F 97.5 F L Pulse Rate 50 L 60 Respiratory Rate 16 20 Blood Pressure 155/72 H 151/69 H Pulse Oximetry 97 94 L Intake & Output 11/26/17 11/27/17 11/27/17 18:59 06:59 18:59 Intake Total 1480 / 1480 0 / 0 Output Total 1400 / 1400 1250 / 1250 Balance 80 / 80 -1250 / -1250 Weight 66.9 kg Intake: IV 1000 / 1000 NS Inj 1,000 ML @ 42 mls/hr IV. 1000 / 1000 CONT .[id number] [facility] Rx#:[id number] Oral 480 / 480 0 / 0 Output: Urine 1400 / 1400 1250 / 1250 Other: Date of Last Bowel Movement 11/25/17 # Bowel Movements 0 1 Narrative: Gen: NAD, resting in bed Skin: No visible lesions CV: regular rate and rhythm; normal perfusion Resp: CTAB; normal rate Abd: Soft, nontender : cath in place; urine in Camacho bag MSK: Grossly normal motor function and ROM Neuro: Awake, alert. Normal CN. Grossly normal motor/sensory function Results Procedures completed during hospitalization: See dc summary. Labs on day of discharge: Labs from last 24 hours 11/27/17 11/27/17 11/26/17 05:30 05:30 18:15 WBC 8.2 RBC 3.96 L Hgb 12.2 L Hct 36.1 L MCV 91.2 MCH 30.9 MCHC 33.8 RDW 13.6 Plt Count 290 MPV 7.2 Neut % (Auto) 64.8 Lymph % (Auto) 19.3 [place] % (Auto) 13.1 H Eos % (Auto) 2.0 Baso % (Auto) 0.8 Neut # (Auto) 5.3 Lymph # (Auto) 1.6 [place] # (Auto) 1.1 H Eos # (Auto) 0.2 Baso # (Auto) 0.1 WBC Differential . Differential Comment Auto diff final Sodium 137 Potassium 4.0 Chloride 104 Carbon Dioxide 24.5 Anion Gap 9 BUN 17 Creatinine 0.95 Estimated GFR 75 L Random Glucose 91 Calcium 8.0 L Urine Color Straw Urine Clarity Clear Urine pH 7.0 Ur Specific [place] 1.008 Urine Protein Negative Urine Glucose (UA) Negative Urine Ketones Negative Urine Occult Blood Small H Urine Nitrate Negative Urine Bilirubin Negative Urine Urobilinogen Less than 2 Ur Leukocyte Esterase Trace H Urine RBC Less than 1 Urine WBC 5 Urine Bacteria Rare H Urine Comment Cath-culture ind - Impressions ITS Impressions Venous Doppler Study 11/23/17 00:00 CONCLUSION: 1. No evidence of deep venous thrombosis within the lower extremities. Chest X-Ray 11/25/17 00:00 CONCLUSION: No acute cardiopulmonary disease Discharge Plan - Discharge Disposition Patient Disposition: 62 Rehab Inpatient - Discharge Condition Condition: Stable - Discharge Order Discharge Orders: Discharge Order (Routine); Ordered 11/27/17 Ordered By: Zion Godfrey - Discharge Details Anticipated Discharge Date: 11/27/17 - Physicians Team Primary Care Provider: Dmitriy Gutierrez Attending Provider: Zion Godfrey Other Providers: Jose Holt MD ; Krystian Wan DO ; Randy Kolb MD ; [employer] - Rxs /Orders / Referrals /Forms Prescriptions: New cholestyramine (with sugar) 4 gram Powder In Packet 4 gm PO Q12HR 15 Days Qty: 30 RF: 0 ciprofloxacin HCl 500 mg Tablet 500 mg PO Q12HR 10 Days Qty: 20 RF: 0 finasteride 5 mg Tablet 5 mg PO DAILY Qty: 30 RF: 0 lisinopril 10 mg Tablet 10 mg PO DAILY Qty: 30 RF: 0 tamsulosin 0.4 mg Capsule,Extended Release 24hr 0.4 mg PO DAILY 30 Days Qty: 30 RF: 0 Continue lovastatin 20 mg Tablet 20 mg PO HS metoprolol tartrate 25 mg Tablet 25 mg PO HS Discontinued lisinopril 10 mg Tablet 10 mg PO HS terazosin 10 mg Capsule 10 mg PO HS Referrals: Marisela Gill MD [Physician] - See Instructions (Please follow-up with Dr. Gill for Afib in 1 week to discuss anticoagulation) Dmitriy Gutierrez MD [Primary Care Provider] - 12/01/17 Randy Kolb MD [Physician] - See Instructions (Please call for follow-up in 1 week) Primary Care Kesha Lucio [NATHAN MD] - See Instructions - Post Discharge Care Plan Care Plan Goals: Your Health Problems: Goals to Promote Your Health: * To prevent worsening of your condition * To maintain your health at the optimal level Directions to Meet Your Goals: * Take your medications as prescribed * Follow your dietary instruction * Follow activity as directed * Keep your appointments as scheduled * Take your immunizations and boosters as scheduled * If your symptoms worsen call your PCP * If no PCP go to Urgent Care or Emergency Room Smoking is dangerous to your health. Avoid second hand smoke. You may reach the 24-hour crisis hotline for domestic abuse at .
[2017-11-27] MEDS: Enoxaparin Inj 30 MG/0.3 ML Syringe SQ SCH (16:42)
[2017-11-28] MEDS: Famotidine 20 MG Tablet PO SCH ×2 (08:58→20:28)
[2017-11-28] MEDS: Metoprolol Tartrate 25 MG Tablet PO SCH (08:58)
[2017-11-28] MEDS: Lisinopril 10 MG Tablet PO SCH (08:58)
[2017-11-28] MEDS: Ciprofloxacin 500 MG Tablet PO SCH ×2 (08:58→20:28)
[2017-11-28] MEDS: Finasteride 5 MG Tablet PO SCH (08:58)
--- NOTE | 2017-11-28 12:55 | P.PN ---
Subjective Interval history: Mr. Amin was afebrile with stable VS overnight. Patient denies chest pain, shortness of breath, abnormal bowel movements, or other concerns. Conversation with , daughter, and other family regarding HH vs rehab was held; dueto concern about safety at home, consensus was to reattempt rehab. Physical Exam Vital signs: Vital Signs 11/27/17 16:00 11/27/17 20:00 11/28/17 00:00 Temperature 96.8 F L 98.8 F 98.4 F Pulse Rate 52 L 62 70 Respiratory Rate 17 18 16 Blood Pressure 116/55 L 143/67 H 125/58 L Pulse Oximetry 96 95 96 11/28/17 03:45 11/28/17 04:00 11/28/17 08:00 Temperature 98.1 F 97.8 F Pulse Rate 54 L 67 59 L Respiratory Rate 16 18 Blood Pressure 120/57 L 150/69 H Pulse Oximetry 97 96 11/28/17 08:08 11/28/17 08:09 Temperature Pulse Rate 64 54 L Respiratory Rate Blood Pressure Pulse Oximetry Intake & Output 11/27/17 11/28/17 11/28/17 18:59 06:59 18:59 Intake Total 600 / 600 120 / 120 Output Total 1150 / 1150 900 / 900 Balance -550 / -550 -780 / -780 Weight 68.1 kg Intake: Oral 600 / 600 120 / 120 Output: Urine 1150 / 1150 900 / 900 Other: Date of Last Bowel Movement 11/27/17 11/28/17 # Bowel Movements 1 2 Narrative: Gen: NAD, resting in bed Skin: No visible lesions CV: regular rate and rhythm; normal perfusion Resp: CTAB; normal rate Abd: Soft, nontender to palpation. Normal BM : cath in place MSK: Grossly normal motor function and ROM Neuro: Awake, alert. Normal CN. Grossly normal motor/sensory function - Urinary Catheter Management Indwelling Urethral Catheter Cath placed during this visit: yes, but has since been removed by the nurse Urethral indwelling: Yes Reason for continuing: Chronic Urinary Retention Insertion date: 11/25/17 Insertion time: 14:45 Removal date: 11/24/17 Removal time: 11:36 Results - Labs CBC & Chem 7: 11/27/17 05:30 11/27/17 05:30 - Procedures See dc summary. Assessment and Plan - Assessment (1) New onset a-fib Code(s): I48.91 - Unspecified atrial fibrillation Status: Acute (2) Sepsis Code(s): A41.9 - Sepsis, unspecified organism Status: Acute (3) UTI (urinary tract infection) Code(s): N39.0 - Urinary tract infection, site not specified Status: Acute (4) Weakness Code(s): R53.1 - Weakness Status: Acute - Plan 87-year-old male admitted secondary to severe sepsis with UTI and metabolic encephalopathy. Urinary tract infection Impression: Sepsis on admission w/ blood and urine cultures + 11/16 for Providencia Rettgeri. Sensitive to Cipro Leukocytosis 11/25; subsequently resolved. UA rechecked and was negative - continue ciprofloxacin at discharge Obstructive urinary retention Benign prostatic hypertrophy Impression: 11/25 Patient failed voiding trial w/ high residual. Camacho placed. -Urology consulted -Keep catheter in place for 1 week; f/u with urology for removal/voiding trial -Continue Flomax and Proscar daily Diarrhea C. difficile screen is negative. Improving with Questran. -Continue Questran Bilateral lower extremity pain with ambulation Impression: US of bilateral lower extremities negative. Suspect weakness/ debility. Normal electrolytes currently -Continue PT Hypertension Acute kidney injury Impression: Intermittent HTN to 150's today Continue baseline treatment Follow blood pressures Adjust treatments as needed Monitor renal function. Avoid nephrotoxins Coronary artery disease Status post CABG Cardiomyopathy/CHF New onset atrial fibrillation Treatment per cardiology recommendations Cardiology following Follow on telemetry Continue metoprolol Continue lisinopril DVT prophylaxis Lovenox SCDs Discharge Planning: Anticipate discharge to rehab today
[2017-11-28] MEDS: Enoxaparin Inj 30 MG/0.3 ML Syringe SQ SCH (17:13)
[2017-11-29 09:10] VITALS: BP 135/65; RESP 20; TEMP 97.9; O2SAT 95
[2017-11-29] MEDS: Ciprofloxacin 500 MG Tablet PO SCH (09:30)
[2017-11-29] MEDS: Famotidine 20 MG Tablet PO SCH (09:30)
[2017-11-29] MEDS: Finasteride 5 MG Tablet PO SCH (09:30)
[2017-11-29] MEDS: Lisinopril 10 MG Tablet PO SCH (09:31)
[2017-11-29] MEDS: Metoprolol Tartrate 25 MG Tablet PO SCH (09:32)
--- NOTE | 2017-11-29 10:43 | P.DCO ---
- Physical Therapy Order: Evaluate and treat, Improve ambulation, Strength and gait training - Home Health Nursing Order: Medical education, Camacho catheter maintenance - Certification I have seen patient Johan Amin on 11/29/17. My clinical findings support the need for the requested home health care services because: Deconditioned with increased weakness, Need for psychosocial assistance, Infection with risk of complications I certify that my clinical findings support that this patient is homebound because: Poor cardiac reserve
--- NOTE | 2017-11-29 10:48 | P.PN ---
Subjective Interval history: awake and alert no complains seen with family at bedside- now decidees to go home with home PT and nursing Physical Exam Vital signs: Vital Signs 11/28/17 12:00 11/28/17 16:00 11/28/17 20:00 Temperature 97.6 F 97.7 F 97.2 F L Pulse Rate 65 67 64 Respiratory Rate 18 18 18 Blood Pressure 96/54 L 110/50 L 120/66 Pulse Oximetry 95 97 100 11/29/17 00:00 11/29/17 04:00 11/29/17 04:10 Temperature 98.3 F 97.7 F Pulse Rate 47 L 69 61 Respiratory Rate 18 18 Blood Pressure 125/60 131/63 Pulse Oximetry 96 96 11/29/17 08:00 Temperature 97.9 F Pulse Rate 86 Respiratory Rate 20 Blood Pressure 135/65 Pulse Oximetry 95 Intake & Output 11/28/17 11/29/17 11/29/17 18:59 06:59 18:59 Intake Total 600 / 600 720 / 720 Output Total 1650 / 1650 Balance 600 / 600 -930 / -930 Weight 66.2 kg Intake: Oral 600 / 600 720 / 720 Output: Urine 1650 / 1650 Other: # Voids 3 Date of Last Bowel Movement 11/29/17 # Bowel Movements 2 1 - Constitutional no acute distress - Routine HEENT Exam Head: Present: normocephalic Eye: Present: EOMI, PERRL ENT: Present: mucous membranes moist - Routine Neck Exam Present: supple - Routine Respiratory Exam Present: CTA bilaterally - Routine Cardiovascular Exam Present: irregular rhythm - Routine Abdominal Exam Present: soft, normoactive bowel sounds - Routine Exam Comments: calderon catheter in place- draining grossly cler uyrine - Routine Skin Exam Present: intact - Routine Neurological Exam Present: alert, oriented X3, CN II-XII intact - Urinary Catheter Management Indwelling Urethral Catheter Cath placed during this visit: yes, but has since been removed by the nurse Urethral indwelling: Yes Reason for continuing: Acute urinary retention Insertion date: 11/25/17 Insertion time: 14:45 Removal date: 11/24/17 Removal time: 11:36 Results - Labs CBC & Chem 7: 11/27/17 05:30 11/27/17 05:30 - Procedures See dc summary. Assessment and Plan - Assessment (1) New onset a-fib Code(s): I48.91 - Unspecified atrial fibrillation Status: Acute (2) Sepsis Code(s): A41.9 - Sepsis, unspecified organism Status: Acute (3) UTI (urinary tract infection) Code(s): N39.0 - Urinary tract infection, site not specified Status: Acute (4) Weakness Code(s): R53.1 - Weakness Status: Acute - Plan 87-year-old male admitted secondary to severe sepsis with UTI and metabolic encephalopathy. Urinary tract infection Impression: Sepsis on admission w/ blood and urine cultures + 11/16 for Providencia Rettgeri. Sensitive to Cipro Leukocytosis 11/25; subsequently resolved. UA rechecked and was negative - continue ciprofloxacin at discharge Obstructive urinary retention Benign prostatic hypertrophy Impression: 11/25 Patient failed voiding trial w/ high residual. Calderon placed. -Urology consulted -Keep catheter in place for 1 week; f/u with urology for removal/voiding trial -Continue Flomax and Proscar daily Diarrhea- improved C. difficile screen is negative. Improving with Questran. -Continue Questran Bilateral lower extremity pain with ambulation- improved Impression: US of bilateral lower extremities negative. Suspect weakness/ debility. Normal electrolytes currently -Continue PT Hypertension Acute kidney injury Impression: improved Continue baseline treatment Follow blood pressures Adjust treatments as needed Monitor renal function. Avoid nephrotoxins Coronary artery disease Status post CABG Cardiomyopathy/CHF New onset atrial fibrillation Treatment per cardiology recommendations Cardiology following- OP ff up with Dr. Gill Follow on telemetry Continue metoprolol Continue lisinopril DVT prophylaxis Lovenox SCDs Discharge Planning: Home today with home [facility] nursing and PT
[2017-11-29 14:54] VITALS: PULSE 97
== END 2017-11-29 13:16 | disposition home health service (06) ==
LOC: N04 15:21
PROVIDERS: ADMIT Internal Medicine; ATTEND Internal Medicine